=== PATIENT | male | born 1975 | race Caucasian/White ===

== ENCOUNTER → 2017-12-24 10:39 | Outpatient (REF) | payer MEDICAID, SELFPAY ==
[2017-12-24 14:07] LABS: Amphetamine/Metha Screen,Urine Negative ng/mL (<1000); Barbiturates Screen,Urine Negative ng/mL (<200); Benzodiazepines Screen,Urine Negative ng/mL (200); Cannabinoid Screen,Urine Negative ng/mL (<50); Cocaine Screen,Urine Negative ng/g (<300); Methadone Screen,Urine Negative ng/mL (<300); Opiate Screen,Urine Negative ng/mL (<300); Phencyclidine Screen,Urine Negative ng/mL (<25)
== END ==
LOC: LAB 10:39
PROVIDERS: Visit Provider Emergency Medicine
DX: Z79.899 Other long term (current) drug therapy (principal)
CPT/HCPCS: 80305

== ENCOUNTER → 2018-03-22 09:23 | Outpatient (CLI) | payer MEDICAID, SELFPAY ==
[2018-03-22 19:30] LABS: Amphetamine/Metha Screen,Urine Negative ng/mL (<1000); Barbiturates Screen,Urine Negative ng/mL (<200); Benzodiazepines Screen,Urine Positive ng/mL (200); Cannabinoid Screen,Urine Negative ng/mL (<50); Cocaine Screen,Urine Negative ng/g (<300); Methadone Screen,Urine Negative ng/mL (<300); Opiate Screen,Urine Negative ng/mL (<300); Phencyclidine Screen,Urine Negative ng/mL (<25)
== END ==
PROVIDERS: Visit Provider Emergency Medicine
DX: Z79.899 Other long term (current) drug therapy (principal)
CPT/HCPCS: 80305

== ENCOUNTER → 2018-06-19 09:39 | Outpatient (CLI) | payer MEDICAID, SELFPAY ==
[2018-06-19 14:12] LABS: Amphetamine/Metha Screen,Urine Negative ng/mL (<1000); Barbiturates Screen,Urine Negative ng/mL (<200); Benzodiazepines Screen,Urine Negative ng/mL (<200); Cannabinoid Screen,Urine Negative ng/mL (<50); Cocaine Screen,Urine Negative ng/mL (<300); Methadone Screen,Urine Negative ng/mL (<300); Opiate Screen,Urine Negative ng/mL (<300); Phencyclidine Screen,Urine Negative ng/mL (<25)
== END ==
PROVIDERS: Visit Provider Emergency Medicine
DX: Z79.899 Other long term (current) drug therapy (principal)
CPT/HCPCS: 80305

== ENCOUNTER → 2018-09-17 13:38 | Outpatient (CLI) | payer MEDICAID, SELFPAY ==
[2018-09-17 14:51] LABS: Amphetamine/Metha Screen,Urine Negative ng/mL (<1000); Barbiturates Screen,Urine Negative ng/mL (<200); Benzodiazepines Screen,Urine Positive ng/mL (<200); Cannabinoid Screen,Urine Negative ng/mL (<50); Cocaine Screen,Urine Negative ng/mL (<300); Methadone Screen,Urine Negative ng/mL (<300); Opiate Screen,Urine Negative ng/mL (<300); Phencyclidine Screen,Urine Negative ng/mL (<25)
== END ==
PROVIDERS: Visit Provider Emergency Medicine
DX: Z79.899 Other long term (current) drug therapy (principal)
CPT/HCPCS: 80305

== ENCOUNTER → 2018-12-16 13:55 | Outpatient (CLI) | payer MEDICAID, SELFPAY ==
[2018-12-16 14:22] LABS: Basophils # 0.1 K/mm3 (0-0.2); Basophils % 1.1 % (0.1-2.0); Eosinophils # 0.4 K/mm3 (0.0-0.4); Eosinophils % 4.4 % (0.1-12.0); Hematocrit 51.8 % (42.0-52.0); Hemoglobin 17.5 g/dL (14.1-18.0); Lymphocytes # 2.3 K/mm3 (0.7-4.5); Lymphocytes % 29.6 % (10-50); Mean Corpuscular HGB Conc 33.8 g/dL (31.8-35.4); Mean Corpuscular Hemoglobin 30.5 pg (27.0-31.2); Mean Corpuscular Volume 90.3 fl (80-94); Mean Platelet Volume 8.1 fl (7.4-10.4); Monocytes # 0.4 K/mm3 (0.1-1.0); Monocytes % 5.3 % (1.7-9.3); Neutrophils # 4.7 K/mm3 (1.8-7.8); Neutrophils % 59.6 % (37.0-80.0); Platelet Count 231 K/mm3 (142-424); Red Blood Count 5.74 M/mm3 (4.60-6.20); Red Cell Distribution Width 13.6 % (11.5-17.5); White Blood Count 7.9 K/mm3 (4.8-10.8)
[2018-12-16 16:03] LABS: Alanine Aminotransferase 24 U/L (12-78); Albumin Level 3.9 gm/dL (3.4-5.0); Albumin/Globulin Ratio 1.1 (1.1-1.8); Alkaline Phosphatase 82 U/L (46-116); Anion Gap 13.6 mEq/L (5-15); Aspartate Amino Transferase 15 U/L (15-37); Bilirubin,Total 0.2 mg/dL (0.2-1.0); Blood Urea Nitrogen 14 mg/dL (7-18); Calcium 9.2 mg/dL (8.5-10.1); Carbon Dioxide 27 mmol/L (21.0-32.0); Chloride 101 mmol/L (98-107); Chol/HDL Ratio 6.3 (1-3.5); Cholesterol 182 mg/dL (140-200); Creatinine,Serum 0.83 mg/dL (0.70-1.30); Estimated Glomerular Filt Rate 101 ml/min (>60); Free T4 (Free Thyroxine) 0.97 ng/dl (0.76-1.46); GFR (African American) 122 ML/MIN (>60); Globulin 3.5 gm/dl (1.3-3.2); Glucose 147 mg/dL (74-106); HDL Cholesterol 29 mg/dL (27-67); LDL Cholesterol 93 mg/dL (0-130); Potassium 4.6 mmoL/L (3.5-5.1); Sodium 137 mmol/L (136-145); Total Protein,Serum 7.4 gm/dL (6.4-8.2); Triglycerides 298 mg/dL (30-200); VLDL Cholesterol 60 mg/dL (0-40)
[2018-12-16 16:07] LABS: Amphetamine/Metha Screen,Urine Negative ng/mL (<1000); Barbiturates Screen,Urine Negative ng/mL (<200); Benzodiazepines Screen,Urine Negative ng/mL (<200); Cannabinoid Screen,Urine Negative ng/mL (<50); Cocaine Screen,Urine Negative ng/mL (<300); Methadone Screen,Urine Negative ng/mL (<300); Opiate Screen,Urine Negative ng/mL (<300); Phencyclidine Screen,Urine Negative ng/mL (<25)
[2018-12-18 14:39] LABS: Vitamin D 25 Hydroxy 8.4 ng/mL (30.0-100.0)
== END ==
PROVIDERS: Visit Provider Emergency Medicine
DX: R53.83 Other fatigue (principal); Z79.899 Other long term (current) drug therapy
CPT/HCPCS: 80053; 80061; 80305; 82652; 84439; 84443; 85025

== ENCOUNTER → 2019-03-17 17:04 | Outpatient (CLI) | payer MEDICAID, SELFPAY ==
[2019-03-17 18:10] LABS: Hemoglobin A1C 7.3 % (0.0-7.0)
== END ==
PROVIDERS: Visit Provider Emergency Medicine
DX: R73.9 Hyperglycemia, unspecified (principal)
CPT/HCPCS: 36415; 83036

== ENCOUNTER → 2019-03-18 17:58 | Outpatient (CLI) | payer MEDICAID, SELFPAY ==
[2019-03-18 19:27] LABS: Amphetamine/Metha Screen,Urine Negative ng/mL (<1000); Barbiturates Screen,Urine Negative ng/mL (<200); Benzodiazepines Screen,Urine Positive ng/mL (<200); Cannabinoid Screen,Urine Negative ng/mL (<50); Cocaine Screen,Urine Negative ng/mL (<300); Methadone Screen,Urine Negative ng/mL (<300); Opiate Screen,Urine Negative ng/mL (<300); Phencyclidine Screen,Urine Negative ng/mL (<25)
== END ==
PROVIDERS: Visit Provider Emergency Medicine
DX: F41.9 Anxiety disorder, unspecified (principal)
CPT/HCPCS: 80305

== ENCOUNTER → 2019-04-15 20:06 | Outpatient (CLI) | payer MEDICAID, SELFPAY | PROVIDERS: PCP Emergency Medicine; Visit Provider Emergency Medicine | DX: G47.33 Obstructive sleep apnea (adult) (pediatric) (principal); R06.83 Snoring; E66.9 Obesity, unspecified | CPT/HCPCS: 95811 ==

== ENCOUNTER → 2019-06-17 16:58 | Outpatient (CLI) | payer MEDICAID, SELFPAY ==
[2019-06-17 19:39] LABS: Amphetamine/Metha Screen,Urine Negative ng/mL (<1000); Barbiturates Screen,Urine Negative ng/mL (<200); Benzodiazepines Screen,Urine Positive ng/mL (<200); Cannabinoid Screen,Urine Negative ng/mL (<50); Cocaine Screen,Urine Negative ng/mL (<300); Methadone Screen,Urine Negative ng/mL (<300); Opiate Screen,Urine Negative ng/mL (<300); Phencyclidine Screen,Urine Negative ng/mL (<25)
== END ==
PROVIDERS: Visit Provider Emergency Medicine
DX: Z79.899 Other long term (current) drug therapy (principal)
CPT/HCPCS: 80305

== ENCOUNTER 2023-12-05 22:19 | Outpatient (CLI) | payer MEDICAID, SELFPAY ==
[2023-12-05 18:55] LABS: Chol/HDL Ratio 6.5 (1-3.5); Cholesterol 203 mg/dl (140-200); HDL Cholesterol 31 mg/dl (40-60); Triglycerides 108 mg/dl (30-150); VLDL Cholesterol 22 mg/dL (0-40)
[2023-12-05 19:08] LABS: Direct LDL Cholesterol 137.23 mg/dL (100-129)
[2023-12-05 21:50] LABS: Creatinine,Urine Random 88 mg/dL (Not Estab.)
[2023-12-05 21:52] LABS: Microalbumin < 6.000 mg/L (0-16.7)
== END 2023-12-05 23:59 ==
LOC: LAB.DROPOF 22:19
PROVIDERS: PCP Internal Medicine; Visit Provider Internal Medicine
DX: E11.9 Type 2 diabetes mellitus without complications (principal); E05.90 Thyrotoxicosis, unspecified without thyrotoxic crisis or storm; Z79.899 Other long term (current) drug therapy
CPT/HCPCS: 80061; 82043; 82570

== ENCOUNTER 2024-01-30 13:43 | Outpatient (CLI) | payer MEDICAID, SELFPAY ==
[2024-01-30 18:26] LABS: Basophils # 0.1 K/mm3 (0-0.2); Eosinophils # 0.1 K/mm3 (0.0-0.4); Eosinophils % 1.7 % (0.1-12.0); Hematocrit 47.2 % (42.0-52.0); Hemoglobin 15.5 g/dL (14.1-18.0); Lymphocytes # 2.3 K/mm3 (0.7-4.5); Lymphocytes % 31.1 % (10-50); Mean Corpuscular HGB Conc 32.8 g/dL (31.8-35.4); Mean Corpuscular Hemoglobin 31.5 pg (27.0-31.2); Mean Corpuscular Volume 96.2 fl (80-94); Mean Platelet Volume 7.6 fl (7.4-10.4); Monocytes # 0.3 K/mm3 (0.1-1.0); Monocytes % 4.4 % (1.7-9.3); Neutrophils # 4.6 K/mm3 (1.8-7.8); Neutrophils % 61.8 % (37.0-80.0); Platelet Count 175 K/mm3 (142-424); Red Blood Count 4.91 M/mm3 (4.60-6.20); Red Cell Distribution Width 13.9 % (11.5-17.5); White Blood Count 7.5 K/mm3 (4.8-10.8)
[2024-01-30 18:31] LABS: Alanine Aminotransferase 5 U/L (12-78); Albumin Level 4.5 g/dl (3.5-5.0); Albumin/Globulin Ratio 1.8 (1.1-1.8); Alkaline Phosphatase 56 U/L (38-126); Anion Gap 9.6 mEq/L (5-15); Aspartate Amino Transferase 25 U/L (17-59); Bilirubin,Total 0.5 mg/dl (0.2-1.3); Blood Urea Nitrogen 19 mg/dl (9-20); Calcium 9.4 mg/dl (8.4-10.2); Carbon Dioxide 29 mmol/L (22.0-30.0); Chloride 103 mmol/L (98-107); Estimated Glomerular Filt Rate 90 ml/min (>60); GFR (African American) 109 ML/MIN (>60); Globulin 2.5 g/dL (1.3-3.2); Glucose 92 mg/dl (74-100); Potassium 4.6 mmoL/L (3.5-5.1); Sodium 137 mmol/L (136-145)
[2024-01-30 18:57] LABS: Thyroid Stimulating Hormone 2.52 uIU/mL (0.465-4.68)
== END 2024-01-30 23:59 | disposition home or self-care (01) ==
LOC: LAB.DROPOF 01-31 13:44
PROVIDERS: PCP Internal Medicine; Visit Provider Internal Medicine
DX: R53.83 Other fatigue (principal)
CPT/HCPCS: 80053; 84443; 85025

== ENCOUNTER 2024-03-05 11:27 | Outpatient (CLI) | payer MEDICAID, SELFPAY ==
[2024-03-05 20:25] LABS: 25-OH Vitamin D, Total 45.3 ng/mL (30-100)
== END 2024-03-05 23:59 | disposition home or self-care (01) ==
LOC: LAB.DROPOF 03-06 11:27
PROVIDERS: PCP Internal Medicine; Visit Provider Internal Medicine
DX: E55.9 Vitamin D deficiency, unspecified (principal)
CPT/HCPCS: 82306

== ENCOUNTER 2024-08-18 13:41 | Outpatient (CLI) | payer MEDICAID, SELFPAY ==
[2024-08-18 19:03] LABS: Chol/HDL Ratio 5.1 (1-3.5); Cholesterol 182 mg/dl (140-200); HDL Cholesterol 36 mg/dl (40-60); Triglycerides 65 mg/dl (30-150); VLDL Cholesterol 13 mg/dL (0-40)
[2024-08-18 19:14] LABS: Direct LDL Cholesterol 138.55 mg/dL (100-129)
== END 2024-08-18 23:59 | disposition home or self-care (01) ==
LOC: LAB.DROPOF 08-19 12:14
PROVIDERS: PCP Internal Medicine; Visit Provider Internal Medicine
DX: E78.00 Pure hypercholesterolemia, unspecified (principal)
CPT/HCPCS: 80061

== ENCOUNTER 2025-02-23 11:32 | Outpatient (CLI) | payer MEDICAID, SELFPAY ==
[2025-02-23 18:52] LABS: Basophils # 0.1 K/mm3 (0-0.2); Eosinophils # 0.2 Kmm3 (0.0-0.4); Eosinophils % 2.7 % (0.1-12.0); Hematocrit 51.3 % (42.0-52.0); Hemoglobin 17.3 g/dL (14.1-18.0); Immature Granulocytes # 0.01 10^3uL; Immature Granulocytes % 0.1 %; Lymphocytes # 2.1 K/mm3 (0.7-4.5); Lymphocytes % 29.3 % (10-50); Mean Corpuscular HGB Conc 33.7 g/dL (31.8-35.4); Mean Corpuscular Hemoglobin 30.9 pg (27.0-31.2); Mean Corpuscular Volume 91.6 fl (80-94); Mean Platelet Volume 9.4 fl (7.4-10.4); Monocytes # 0.5 K/mm3 (0.1-1.0); Monocytes % 6.4 % (1.7-9.3); Neutrophils # 4.4 K/mm3 (1.8-7.8); Neutrophils % 60.5 % (37.0-80.0); Nucleated Red Blood Cells # 0 10^3/uL; Nucleated Red Blood Cells % 0 %; Platelet Count 188 K/mm3 (142-424); Red Cell Distribution Width 13.4 % (11.5-17.5); Red Cell Distribution Width-SD 45.6 fL; White Blood Count 7.3 K/mm3 (4.8-10.8)
[2025-02-23 19:58] LABS: Alanine Aminotransferase 7 U/L (12-78); Albumin Level 4.8 g/dl (3.5-5.0); Albumin/Globulin Ratio 1.9 (1.1-1.8); Alkaline Phosphatase 62 U/L (38-126); Aspartate Amino Transferase 24 U/L (17-59); Bilirubin,Total 0.7 mg/dl (0.2-1.3); Blood Urea Nitrogen 13 mg/dl (9-20); Calcium 9.5 mg/dl (8.4-10.2); Carbon Dioxide 30 mmol/L (22.0-30.0); Chloride 104 mmol/L (98-107); Chol/HDL Ratio 6.2 (1-3.5); Cholesterol 198 mg/dl (140-200); Estimated Glomerular Filt Rate 102 ml/min (>60); GFR (African American) 124 ML/MIN (>60); Globulin 2.5 g/dL (1.3-3.2); Glucose 92 mg/dl (74-100); HDL Cholesterol 32 mg/dl (40-60); Sodium 138 mmol/L (136-145); Total Protein,Serum 7.3 g/dl (6.3-8.2); Triglycerides 120 mg/dl (30-150); VLDL Cholesterol 24 mg/dL (0-40)
[2025-02-23 20:09] LABS: Direct LDL Cholesterol 154.58 mg/dL (100-129)
[2025-02-23 20:30] LABS: Prostate Specific Ag Screen 0.2 ng/ml (0.0-4.0)
== END 2025-02-23 23:59 | disposition home or self-care (01) ==
LOC: LAB.DROPOF 02-24 12:58
PROVIDERS: PCP Family Medicine; Visit Provider Family Medicine
DX: Z12.5 Encounter for screening for malignant neoplasm of prostate (principal); E78.5 Hyperlipidemia, unspecified
CPT/HCPCS: 80053; 80061; 85025; G0103